=== PATIENT | male | born 1995 | race Caucasian/White ===

== ENCOUNTER 2024-12-20 22:26 | Emergency (ER) | payer SELFPAY ==
[2024-12-20] MEDS: Ketorolac 30 MG/ML SDV IM ONE (22:58)
[2024-12-20] MEDS: HYDROmorphone 0.5 MG/0.5 ML Syringe IM ONE (23:02)
== END 2024-12-21 00:20 | disposition home or self-care (01) ==
LOC: JP.ED 22:26
DX: S60.011A Contusion of right thumb without damage to nail, initial encounter (principal); Z88.6 Allergy status to analgesic agent; W20.8XXA Other cause of strike by thrown, projected or falling object, initial encounter
CPT/HCPCS: 73140-F5; 96372; 99282; 99283